=== PATIENT | male | born 1935 | race Caucasian/White ===

== ENCOUNTER 2023-04-29 20:33 | Emergency (ER) | payer MEDICARE, SELFPAY ==
--- NOTE | ~2023-04-29 | XR_ITS ---
EXAMINATION: XR chest 1V Exam Date/Time: 04/29/2023 21:10 CDT HISTORY: glf, unable to tell me pain Comparison: None. RESULT: Lines, tubes, and devices: Intact sternotomy wires. Lungs and pleura: Senescent change, otherwise clear. Cardiomediastinal silhouette: Stable. Other: No acute osseous or upper abdominal finding. Cortical irregularity of the posterior lateral l eft sixth and seventh ribs, partially obscured by an overlying buckle IMPRESSION: Possible nondisplaced acute versus chronic left sixth and seventh posterior lateral ribs, correlate f or pain/point tenderness. Reviewed, dictated and finalized at location K. IMPRESSION: Possible nondisplaced acute versus chronic left sixth and seventh posterior lat eral ribs, correlate for pain/point tenderness.
--- NOTE | ~2023-04-29 | CT_ITS ---
EXAMINATION: CT cervical spine wo con DATE: 04/29/2023 21:13 INDICATION: glf, unsure of HI TECHNIQUE: Computed tomography (CT) of the cervical spine was performed without intravenous contrast. Automated exposure control and iterative reconstruction technique were employed. The dose-length pro duct was 251.75 mGy-cm. COMPARISON: None. FINDINGS: Vertebral Body Alignment: Grade 1 anterolistheses at C4-5, C5-6, and C7-T1, presumably on a degenerat bryant basis. Reversed lordosis, centered at C5-6 Craniocervical and atlantoaxial alignment: Moderate degenerative change. Alignment intact. Osseous structures/fracture: No evidence of a lytic or blastic process in the visualized spine. No e vidence of acute fracture. Cervical soft tissues: The paraspinal soft tissues planes are maintained. Degenerative changes: Multilevel facet fusions. Multilevel degenerative disc disease and facet arthro trent. No severe central canal or neural foraminal narrowing. IMPRESSION: No acute fracture or traumatic malalignment in the cervical spine. Reviewed, dictated and finalized at location K.
--- NOTE | ~2023-04-29 | CT_ITS ---
EXAMINATION: CT brain wo con DATE: 04/29/2023 21:13 INDICATION: ams, glf, unsure of HI . TECHNIQUE: Computed tomography (CT) of the head was performed without intravenous contrast. The mA wa s adjusted according to patient size. Iterative reconstruction technique was employed. The dose-lengt h product was 681.00 mGy-cm. COMPARISON: None. FINDINGS: No acute intracranial hemorrhage or extra-axial fluid collection. No hydrocephalus, mass, or herniation. No acute ischemic infarct. Unremarkable dural venous sinus attenuation. No acute osseous abnormality. The aerated spaces are clear. Moderate atrophy and mild chronic white matter change. Atherosclerotic intracranial calcification. Bi lateral lens replacements. IMPRESSION: No acute intracranial process. Reviewed, dictated and finalized at location K.
--- NOTE | ~2023-04-29 | XR_ITS ---
EXAM: XR hip BI 2V w AP pelvis DATE: 04/29/2023 21:21 HISTORY: glf, unable to tell me pain, pt unrespons to verb commands . COMPARISON: None available. FINDINGS: Normal mineralization. No fracture or dislocation. No lytic or blastic lesion. Lumbar dege nerative disc disease. Degenerative change in the bilateral hips. No erosion or periosteal change. So ft tissues within normal limits. IMPRESSION: No acute osseous finding in the pelvis or bilateral hips. Reviewed, dictated and finalized at location K.
[2023-04-29 20:32] VITALS: BP 118/59; PULSE 60; RESP 17; TEMP 36.2; O2SAT 96
--- NOTE | 2023-04-29 21:00 | PC.NURSE ---
Pt unresponsive to questions when asked why he is at the ER and if in any pain. Pt did squeeze R hand when prompted but did not follow other commands. PATRICIA Valdez, was at bedside and is aware. Family at bedside reports that this is normal behavior after evening medications from [place].
--- NOTE | 2023-04-29 21:03 | ED.FALL ---
HPI - Fall General Chief Complaint: Fall Stated Complaint: FALL OUT OF W/C, ?LOC Source: patient, EMS and old records reviewed Mode of arrival: EMS Limitations: clinical condition and dementia History of Present Illness HPI Narrative: Patient is an 87 y/o male who presents to the ED via EMS with report of a fall. Patient is a resident of [facility]. Family at bedside assisted in providing information. They report he has a history of Parkinson's disease and Lewy body dementia. Patient frequently has hallucinations at night and receives olanzapine at night, which causes him to become very drowsy. Family reports his current state is normal for him. Patient unable to provide any information upon my evaluation. Family does report patient has become increasingly aphasic and does not often speak in meaningful conversation. [facility] Tonight, per EMS report, patient was sitting in his wheelchair near the nurses station. One of the nurses turned around and noticed that patient had fallen to the ground. They are unsure if he hit his head. Patient was then sent here for further evaluation as he is currently on aspirin. Review of Systems Review of Systems: ROS unobtainable: Yes unobtainable due to medical condition Exam Narrative: GENERAL: Elderly, frail, somnolent, non-toxic, in no acute distress. HEAD: Normocephalic, atraumatic. No wounds or contusions. EYES: PERRLA, patient clenching eyes shut, will not allow me to open eyes. NECK: Supple. No adenopathy, no masses. RESPIRATORY: Airway patent, respirations nonlabored. Clear to auscultation bilaterally, no rales, rhonchi, wheezing. No distress. CARDIOVASCULAR: Regular rate and rhythm without murmurs, rubs, or gallops. Radial pulses 2+ and equal bilaterally. ABDOMINAL: Soft, unable to assess for tenderness. Normoactive BS. MUSCULOSKELETAL: Moves all extremities. Extremities are somewhat stiff, but patient does not appear to be in discomfort with range of motion of extremities. SKIN: Warm, dry, normal color. No rashes. NEURO: Somnolent. Able to follow some commands, squeezes hands when asked. Does not respond verbally. PSYCHIATRIC: Somnolent. Course Vital Signs Vital signs: Vital Signs Temperature 97.2 F L 04/29/23 20:32 Pulse Rate 60 04/29/23 20:32 Respiratory Rate 17 04/29/23 20:32 Blood Pressure 118/59 L 04/29/23 20:32 Pulse Oximetry 96 04/29/23 20:32 Oxygen Delivery Room Air 04/29/23 20:32 Temperature 97.2 F L 04/29/23 20:32 Pulse Rate 53 L 04/29/23 22:08 Respiratory Rate 13 04/29/23 22:08 Blood Pressure 119/57 L 04/29/23 22:08 Pulse Oximetry 97 04/29/23 22:08 Oxygen Delivery Room Air 04/29/23 20:32 MDM - Fall MDM Narrative Medical decision making narrative: Patient [facility] with a fall out of his wheelchair, currently on hospice, history of Parkinson's and Lewy body dementia. Patient somnolent, which jail staff and family has confirmed is typical for him after receiving his olanzapine at bedtime. No focal neurologic deficits appreciated on exam. Patient able to follow some commands, but does not respond verbally, does not provide any useful information. CT brain and cervical spine without acute traumatic findings. Hip/pelvis x-ray negative. Chest x-ray showing possible acute versus chronic nondisplaced L rib fractures. Unable to assess for any tenderness given patient's clinical condition. No ecchymosis overlying ribs. Discussed this finding with family. Will inform jail of this as well. Patient is not in any distress. Oxygen stable on room air. He will be [facility] back to the [facility] to resume hospice care. Return precautions discussed. D/C in stable condition. Medical Records Attestation: I reviewed the patient's medical records. Imaging Data Attestation: I personally reviewed and interpreted this imagin
[2023-04-29 22:08] VITALS: BP 119/57; PULSE 53; RESP 13; O2SAT 97
== END 2023-04-29 23:20 | disposition hospice, home (50) ==
PROVIDERS: Emergency Provider Physician Assistant; PCP Hospitalist
DX: S09.90XA Unspecified injury of head, initial encounter (principal); S20.212A Contusion of left front wall of thorax, initial encounter; G20.A1 Parkinson's disease without dyskinesia, without mention of fluctuations; F02.80 Dementia in other diseases classified elsewhere, unspecified severity, without behavioral disturbance, psychotic disturbance, mood disturbance, and anxiety; G31.83 Neurocognitive disorder with Lewy bodies; W05.0XXA Fall from non-moving wheelchair, initial encounter
CPT/HCPCS: 70450; 71045; 72125; 73521; 99284